=== PATIENT | female | born 1960 | race Caucasian/White ===

== ENCOUNTER 2020-09-24 06:38 | Inpatient (IN) ==
[2020-09-24] MEDS: VIGAMOX 0.5% OPHTH 1 DOSE AFFEYE SCH ×3 (07:06→07:16)
[2020-09-24] MEDS ORDERED: ALCAINE or OPHTHETIC 1 DOSE AFFEYE PRN (07:10)
[2020-09-24] MEDS ORDERED: AK-DILATE 10% OPHTH 1 DOSE AFFEYE PRN (07:10)
[2020-09-24] MEDS: [UNRECOGNIZED DRUG - OTHER] AFFEYE SCH ×6 (07:18→07:23)
[2020-09-24] MEDS ORDERED: NS 500 ML IV 500 ML IV ONE (07:21)
[2020-09-24] MEDS ORDERED: NS 500 ML IV 500 ML IV SCH (08:00)
[2020-09-24] MEDS ORDERED: ALPHAGAN-P OPHTH 1 DOSE AFFEYE SCH (08:00)
[2020-09-24] MEDS: FLAGYL IV PREMIX 500 MG BAG 500 MG/100 ML BAG IV ONE ×2 (09:24→14:42)
[2020-09-24] MEDS ORDERED: NS 1000 ML 1,000 ML ONE (09:27)
[2020-09-24] MEDS: SUPRANE ONE ×2 (09:28→14:42)
[2020-09-24] MEDS: ROCEPHIN 1 GRAM IV PREMIX 1 G/50 ML IV.SOLN. IV ONE ×2 (09:32→14:43)
[2020-09-24] MEDS: DOPAMINE IV PREMIX 400 MG/250 ML 400 MG/250 ML BAG IV ONE ×2 (09:41→14:43)
--- NOTE | 2020-09-24 10:10 | RAD ---
HISTORYAspirationSTUDYChest AP portableCOMPARISONNoneFINDINGSThere is an endotracheal tube in good position. There is a nasogastric tube in good position. Heart is within normal limits in size. Diffuse perihilar right lung infiltrate is present suspicious for aspiration. The left lung is clear. No pleural effusions are identified. Bony thorax is unremarkable.IMPRESSIONDiffuse perihilar right lung infiltrate suspicious for aspirationElectronically signed by: CALEB GREEN (Sep 24, 2020 10:08:34)
[2020-09-24 10:22] LABS: BASOPHILS % (AUTO) 0.4 % (0.2-1.0); EOSINOPHILS # (AUTO) 0.2 x10^3/uL (0.0-0.2); EOSINOPHILS % (AUTO) 1.8 % (0.9-2.9); HEMATOCRIT 31.3 % (36.0-47.0); HEMOGLOBIN 10.4 g/dL (12.0-16.0); LYMPHOCYTES % (AUTO) 38.7 % (21.0-51.0); MEAN CORPUSCULAR HEMOGLOBIN 27.1 pg (27.0-34.0); MEAN CORPUSCULAR HGB CONC 33.4 g/dL (33.0-35.0); MEAN CORPUSCULAR VOLUME 81.1 fL (80.0-100.0); MEAN PLATELET VOLUME 8.5 fL (7.4-11.0); MONOCYTES # (AUTO) 0.7 x10^3/uL (0.3-0.8); MONOCYTES % (AUTO) 6.7 % (0.0-13.0); NEUTROPHILS # (AUTO) 5.4 x10^3/uL (2.2-4.8); NEUTROPHILS % (AUTO) 52.4 % (42.0-75.0); PLATELET COUNT 267 X10^3/uL (150.0-450.0); RED BLOOD COUNT 3.86 X10^6/uL (3.5-5.4); RED CELL DISTRIBUTION WIDTH 14.9 % (11.6-16.5); WHITE BLOOD COUNT 10.3 X10^3/uL (3.6-10.0)
[2020-09-24 10:29] LABS: ALBUMIN 2.9 g/dL (3.4-5.0); CALCIUM 7.6 mg/dL (8.5-10.1); CARBON DIOXIDE 28.5 mmol/L (21-32); COR CA(FOR HYPOALB) 8.5 mg/dL (8.5-10.1); CREATININE 1.58 mg/dL (0.55-1.02); TOTAL PROTEIN 6.9 g/dL (6.4-8.2)
[2020-09-24 10:32] LABS: GASTRIC OCCULT BLOOD POSITIVE (NEGATIVE)
[2020-09-24 10:33] LABS: PH,GASTRIC FLUID 3
[2020-09-24] MEDS ORDERED: DIPRIVAN PREMIX 1 GRAM IV 1,000 MG/100 ML VIAL ONE (10:34)
[2020-09-24] MEDS: NS 1000 ML 1,000 ML IV SCH ×2 (10:45→18:18)
[2020-09-24] MEDS ORDERED: DIPRIVAN 1 GM IV PRN (10:45)
[2020-09-24] MEDS ORDERED: DIPRIVAN PREMIX 1 GRAM IV 1,000 MG/100 ML VIAL IV PRN (11:09)
[2020-09-24 11:10] LABS: BILIRUBIN,URINE NEGATIVE (NEGATIVE); BLOOD/HEMOGLOBIN,URINE 1+ (NEGATIVE); GLUCOSE, URINE NEGATIVE (NEGATIVE); KETONES,URINE NEGATIVE (NEGATIVE); LEUKOCYTE ESTERASE ,URINE 2+ (NEGATIVE); NITRITES,URINE NEGATIVE (NEGATIVE); PROTEIN,URINE 2+ (NEGATIVE); UROBILINOGEN,URINE NORMAL (NORMAL)
[2020-09-24 11:25] LABS: ABG ALLEN TEST POS; ABG BASE EXCESS -2.7 mmol/L (-2.0-2.0); ABG HCO3 22.6 mmol/L (22-26)
[2020-09-24] MEDS: ZOSYN VIAL 3.375 GRAMS 3.375 G in NS 100 ML IV + SPIKE MINIBAG* 100 ML IV SCH ×3 (11:30→21:30)
[2020-09-24] MEDS: PROTONIX INJ 40 MG VIAL IVP SCH ×2 (11:30→21:30)
[2020-09-24 11:32] LABS: APPEARANCE,URINE SLIGHTLY HAZY (CLEAR); BACTERIA,URINE TRACE /HPF (NEGATIVE); COLOR,URINE YELLOW (YELLOW); RBC,URINE 0-2 /HPF (0-3); SQUAMOUS EPITHELIAL CELL,UR MODERATE /HPF (NEGATIVE)
[2020-09-24] MEDS ORDERED: LACRI-LUBE S.O.P. AFFEYE SCH (12:00)
[2020-09-24 13:00] VITALS: BMI 24.7
[2020-09-24 13:30] LABS: CKMB % 1.7 % (<4); CREATINE KINASE 58 Units/L (26-192); CREATINE KINASE MB < 1.0 ng/mL (0-4.0); TROPONIN I < 0.02 ng/mL (0-1.5)
[2020-09-24] MEDS ORDERED: SALINE 0.9% 3 ML NEB TX ONE (14:41)
[2020-09-24 14:51] LABS: ABG BASE EXCESS -4.6 mmol/L (-2.0-2.0); ABG HCO3 19.2 mmol/L (22-26)
[2020-09-24 14:52] LABS: ABG ALLEN TEST POS
[2020-09-24] MEDS: LOVENOX INJ 40 MG SYR SC SCH (16:00)
[2020-09-24 16:25] LABS: CARBON DIOXIDE 22.3 mmol/L (21-32); COR CA(FOR HYPOALB) 8.8 mg/dL (8.5-10.1); CREATININE 1.65 mg/dL (0.55-1.02); TOTAL PROTEIN 7.2 g/dL (6.4-8.2)
--- NOTE | 2020-09-24 18:13 | DR.H&P ---
H&P - History & Physical for Day of: H&P Date: 09/24/20 - Chief Complaint Chief Complaint: ACUTE RESPIRATORY DISTRESS FOLLOWING ASPIRATION - History of Present Illness History of Present Illness: PT IS 60 WF ADMITTED FROM OR FOLLOWING ASPIRATION PRIOR TO CATARACT SURGERY. PT AND FAMILY VERIFIED PT WAS NPO OVER 12HRS PRIOR TO ANESTHESIA. NURSING STAFF PT VOMITED LARGE AMOUNT ~300CC, WITH ACUTE RESPIRATORY DISTRESS REQUIRING MECHANICAL VENTILATION, VASOPRESSOR THERAPY. PT ADMITTED TO ICU FOR ACUTE ASPIRATION PNEUMONIA WITH HYPOXIA AND HYPOTENSION. PT HAD PMH OF DM. - Past Medical History Past Medical History: Diabetes, Hypertension - Past Surgical History Surgical History: Other - Social History Does patient currently use any type of tobacco product: No Have you used tobacco products in the last 12 months: No Type of Tobacco Use: None Does any household member use tobacco: No Alcohol Use: None Drug Use: None - Medications Home Medications: No Known Drug Allergies Allergy (Verified 09/24/20 07:10) CONTINUE taking the following medications atorvastatin 40 mg PO HS 09/24/20 [History] buspirone 5 mg PO BID 09/24/20 [History] duloxetine 60 mg PO DAILY 09/24/20 [History] famotidine 40 mg PO DAILY 09/24/20 [History] fenofibrate nanocrystallized 145 mg PO DAILY 09/24/20 [History] gabapentin 100 mg PO DAILY 09/24/20 [History] glipizide 5 mg PO DAILY 09/24/20 [History] losartan 50 mg PO DAILY 09/24/20 [History] metoprolol succinate 100 mg PO DAILY 09/24/20 [History] trazodone 100 mg PO BID 09/24/20 [History] - Review of Systems Constitutional: No Symptoms Reported Eyes: No Symptoms Reported ENT: No Symptoms Reported Respiratory: Shortness of Breath Cardiovascular: No Symptoms Reported Gastrointestinal: Vomiting Genitourinary: No Symptoms Reported Musculoskeletal: No Symptoms Reported Skin: No Symptoms Reported Neurological: Other (SEDATION) - Physical Exam Vital Signs: Temperature 98.8 F Pulse Rate [Left] 95 Pulse Rate 66 Respiratory Rate 22 Blood Pressure [Left Arm] 146/69 Blood Pressure 136/63 O2 Sat by Pulse Oximetry 99 Oriented: Unable to test Eyes: Normal Ear: Normal Nose: Normal Throat: Normal Respiratory: Diminished Throughout Cardiovascular: Normal : Normal Auscultation: Bowel Sounds: Normal Palpation: Normal Tenderness: Normal Skin: Normal Musculoskeletal: Normal Speech Pattern: Artificially Ventilated - Assessment/Plan (1) Aspiration pneumonia Status: Acute Plan: ADMIT, ICU, VENT SETTINGS PER DR ARCHIBALD AND RESP. REPEAT ABG, BP CONTROL DOPAMINE TITRATION, CONTINUOUS CARDIAC MONITORING, IV HYDRATION, KEATING CATH STRICT I&OS. BS CHECKS, VERIFY HOME MEDICATION, IV PROTONIX BID. SERIAL CE (2) Hypotension Status: Acute (3) Diabetes Status: Acute (4) Hypoxia Status: Acute - Allergies Allergies/Adverse Reactions: Allergies Allergy/AdvReac Type Severity Reaction Status Date / Time No Known Drug Allergies Allergy Verified 09/24/20 07:10
[2020-09-24] MEDS ORDERED: QUELICIN (OR ANECTINE) ONE (19:05)
[2020-09-24] MEDS ORDERED: DECADRON INJ ONE (19:05)
[2020-09-24] MEDS ORDERED: VERSED ONE (19:05)
[2020-09-24] MEDS ORDERED: DIPRIVAN VIAL ONE (19:05)
[2020-09-24] MEDS ORDERED: EPHEDRINE SULFATE INJ ONE (19:05)
[2020-09-24 21:12] LABS: CKMB % 1.8 % (<4); CREATINE KINASE 57 Units/L (26-192); CREATINE KINASE MB < 1.0 ng/mL (0-4.0); TROPONIN I < 0.02 ng/mL (0-1.5)
[2020-09-25] MEDS: NS 1000 ML 1,000 ML IV SCH ×2 (00:30→05:59)
[2020-09-25 01:35] LABS: CKMB % 1.7 % (<4); CREATINE KINASE 58 Units/L (26-192); CREATINE KINASE MB < 1.0 ng/mL (0-4.0); TROPONIN I < 0.02 ng/mL (0-1.5)
--- NOTE | 2020-09-25 04:56 | RAD ---
HISTORYASPIRATION PNEUMONIASTUDYCHEST, 1 [id number] trachea is midline. The cardiac silhouette is mildly enlarged similar to prior exam.. Interval extubation. Mild central pulmonary vascular congestion. No pleural effusion or pneumothorax.. The bony thorax is unremarkable.IMPRESSIONInterval extubation. Mild cardiomegaly and central pulmonary vascular congestion.Electronically signed by: Brittany Neil (Sep 25, 2020 04:54:03)
[2020-09-25 05:23] LABS: BASOPHILS % (AUTO) 0.1 % (0.2-1.0); EOSINOPHILS % (AUTO) 0.1 % (0.9-2.9); HEMATOCRIT 28.3 % (36.0-47.0); HEMOGLOBIN 9.2 g/dL (12.0-16.0); LYMPHOCYTES # (AUTO) 1.7 X10^3/uL (1.3-2.9); LYMPHOCYTES % (AUTO) 11.8 % (21.0-51.0); MEAN CORPUSCULAR HEMOGLOBIN 26.3 pg (27.0-34.0); MEAN CORPUSCULAR HGB CONC 32.6 g/dL (33.0-35.0); MEAN CORPUSCULAR VOLUME 80.7 fL (80.0-100.0); MEAN PLATELET VOLUME 8.9 fL (7.4-11.0); MONOCYTES # (AUTO) 0.7 x10^3/uL (0.3-0.8); MONOCYTES % (AUTO) 4.7 % (0.0-13.0); NEUTROPHILS # (AUTO) 11.7 x10^3/uL (2.2-4.8); NEUTROPHILS % (AUTO) 83.3 % (42.0-75.0); PLATELET COUNT 222 X10^3/uL (150.0-450.0); RED BLOOD COUNT 3.51 X10^6/uL (3.5-5.4); RED CELL DISTRIBUTION WIDTH 14.8 % (11.6-16.5)
[2020-09-25 05:40] LABS: ALBUMIN 2.5 g/dL (3.4-5.0); CALCIUM 7.8 mg/dL (8.5-10.1); CARBON DIOXIDE 23.8 mmol/L (21-32); CREATININE 1.47 mg/dL (0.55-1.02); TOTAL PROTEIN 6.5 g/dL (6.4-8.2)
[2020-09-25 05:49] LABS: ABG BASE EXCESS -2.6 mmol/L (-2.0-2.0); ABG HCO3 21.7 mmol/L (22-26)
[2020-09-25 05:51] LABS: ABG ALLEN TEST POSS
[2020-09-25] MEDS: ZOSYN VIAL 3.375 GRAMS 3.375 G in NS 100 ML IV + SPIKE MINIBAG* 100 ML IV SCH (05:59)
[2020-09-25] MEDS ORDERED: K-RIDER 10 MEQ/NS 100 ML 10 MEQ/100 ML BAG IV PRN (06:02)
[2020-09-25] MEDS ORDERED: POTASSIUM CHL 40 MEQ/NS 0.45% 500 ML IV PRN (06:02)
[2020-09-25] MEDS ORDERED: POTASSIUM CHL 60 MEQ/NS 0.45% 500 ML IV PRN (06:02)
[2020-09-25] MEDS ORDERED: POTASSIUM CHLORIDE LIQ 20 MEQ UDC PO PRN (06:02)
[2020-09-25] MEDS ORDERED: MICRO K EXTEN CAP 10 MEQ PO PRN (06:02)
[2020-09-25] MEDS ORDERED: K-DUR TAB 20 MEQ PO PRN (06:02)
[2020-09-25] MEDS ORDERED: KLOR-CON PO PRN (06:02)
[2020-09-25] MEDS ORDERED: MAGNESIUM SULFATE 1 GRAM/100 mL PREMIX 1 G/100 ML BAG IV ONE (06:06)
[2020-09-25] MEDS: MAGNESIUM SULFATE 1 GRAM/100 mL PREMIX 1 GM/100 ML BAG IV PRN ×2 (06:12→09:31)
[2020-09-25] MEDS ORDERED: PEPCID TAB 20 MG PO SCH (09:00)
[2020-09-25] MEDS ORDERED: NEURONTIN CAP 100 MG PO SCH (09:00)
[2020-09-25] MEDS ORDERED: TOPROL XL PO SCH (09:00)
[2020-09-25] MEDS ORDERED: BUSPAR PO SCH (09:00)
[2020-09-25] MEDS ORDERED: CYMBALTA PO SCH (09:00)
[2020-09-25] MEDS ORDERED: DESYREL PO SCH ×2 (09:00→21:00)
[2020-09-25] MEDS ORDERED: BUSPAR ONE (09:27)
[2020-09-25] MEDS ORDERED: DESYREL PO ONE (09:28)
[2020-09-25] MEDS ORDERED: PEPCID TAB 20 MG ONE (09:28)
[2020-09-25] MEDS ORDERED: NEURONTIN CAP 100 MG ONE (09:28)
[2020-09-25] MEDS ORDERED: CYMBALTA PO ONE (09:28)
[2020-09-25] MEDS ORDERED: TOPROL XL PO ONE (09:28)
[2020-09-25] MEDS: LOVENOX INJ 40 MG SYR SC SCH (09:30)
[2020-09-25] MEDS: PROTONIX INJ 40 MG VIAL IVP SCH (09:31)
[2020-09-25] MEDS ORDERED: STERILE WATER IRRIGATION IR ONE (15:00)
[2020-09-25 15:20] VITALS: BP 103/57
[2020-09-25] MEDS ORDERED: LIPITOR TAB 40 MG PO SCH (21:00)
== END 2020-09-25 13:00 | disposition home or self-care (01) | DRG 208 ==
LOC: SURG1 06:38 → MED/SURG 10:12
PROVIDERS: ADMIT Internal Medicine; ATTEND Internal Medicine
PROC: [UNRECOGNIZED PROCEDURE] (2020-09-24 07:35)
DX: J69.0 Pneumonitis due to inhalation of food and vomit; R26.89 Other abnormalities of gait and mobility; I95.89 Other hypotension; R09.02 Hypoxemia; E11.65 Type 2 diabetes mellitus with hyperglycemia; Z20.828 Contact with and (suspected) exposure to other viral communicable diseases; Z53.8 Procedure and treatment not carried out for other reasons; R06.03 Acute respiratory distress